=== PATIENT | male | born 1970 | race African-American/Black ===

== ENCOUNTER 2023-09-14 13:43 | Emergency (ER) | payer SELFPAY ==
[~2023-09-14] VITALS: Ht 190.5 cm; Wt 113.0 kg
[2023-09-14 13:46] VITALS: O2SAT 98
[2023-09-14 14:42] VITALS: BP 138/85; PULSE 68; RESP 14; TEMP 98.4
== END 2023-09-14 15:43 | disposition home or self-care (01) ==
LOC: ER 13:43 → EDBD 13:43 → ER 15:43
DX: F10.129 Alcohol abuse with intoxication, unspecified (principal); Y90.9 Presence of alcohol in blood, level not specified
CPT/HCPCS: 99283